=== PATIENT | male | born 1955 | race Caucasian/White ===

== ENCOUNTER → 2018-12-27 11:05 | Outpatient (CLI) | payer MEDICAID, SELFPAY ==
--- NOTE | 2018-12-27 11:08 | NM_ITS ---
CARDIOLITE SPECT MYOCARDIAL PERFUSION LEXISCAN, REST AND STRESS: History: Hypertension, hyperlipidemia, chronic tobacco use, family history, chest pain, shortness of breath, syncope and fatigue Procedure: Patient received a 0.4 mg of intravenous Lexiscan, resting heart rate was 57 bpm resting blood pressure 147/87, with scan maximum heart rate achieved was 92 bpm which is less than 85% of the maximum predicted heart rate and a blood pressure was 133/79. With Lexiscan patient complained of shortness of breath Electrocardiogram: Resting electrocardiogram showed sinus rhythm, with Lexiscan there is less than 1.[address] segment depression noted from the baseline EKG. The EKG portion of the Lexiscan Myoview is nondiagnostic. Cardiac stress and resting SPECT images: Cardiac stress and resting SPECT images were obtained using technetium 99 Myoview 32.4 mCi at stress and 10.1 mCi at rest. Gated SPECT further analysis of segmental wall motion and calculation of the ejection fraction also done. Cardiac stress and resting SPECT images show a fixed defect involving the posterobasal wall consistent with area of myocardial scarring, no reversible ischemia seen. Computer derived ejection fraction is 61% with mild posterobasal wall hypokinesis, right ventricle is normal size and contractility. Conclusion: 1. The EKG portion of the Lexiscan Myoview is nondiagnostic. 2. Scintigraphic evidence of myocardial scarring involving the posterobasal wall without significant josh-infarct ischemia, computer derived ejection fraction 61% segmental wall motion abnormality described above, right ventricle is normal size and contractility. 3. Abnormal Lexiscan Myoview study.
--- NOTE | 2018-12-27 11:08 | CA_ITS ---
PROCEDURE: 2-D M-mode and color Doppler study INDICATIONS FOR THE TEST: Chest pain X COPD Heart Murmur Tobacco SmokingX Palpitations Fatigue Syncope Edema HypertensionXDiabetes Mellitus Rheumatic Fever SOBXDOEXObesity HyperlipidemiaX Family History HD Additional History CAD PATIENT INFORMATION HEIGHT: 73 WEIGHT:234 GENDER: Male B/P:135/81 2-D/M-MODE INTERPRETATION: 2-D MEASUREMENTS OBSERVED VALUES IN CMS Right Ventricular Dimension (RVDd) 1.8 Interventricular Septum (Thickness)(IVsd) .8 Left Ventricular Internal Dimensions(LVIDd) 5.0 Left Ventricular Posterior Wall (Thickness)(LVPWd) 1.0 Aortic Root 4.0 Aortic Cusp Separation 2.1 Left Atrial Dimensions (LAD) 2.9 2D 1. Left atrium is mildly enlarged, left ventricle is normal size, mild concentric left ventricular hypertrophy, visually estimated ejection fraction 55% with no regional wall motion abnormality. 2. The right atrium and right ventricle are normal size and contractility. 3. The aortic valve is minimally thickened and fibrosed. 4. The mitral and tricuspid valve are grossly normal. 5. The pulmonic valve is poorly visualized. 6. No significant pericardial effusion noted. DOPPLER INTERROGATION: Doppler interrogation of the aortic, mitral and tricuspid valvular presence of mild mitral and tricuspid regurgitation, tricuspid regurgitation jet velocity is inadequate for calculation of the right ventricular systolic pressure, grade 1 diastolic dysfunction seen without tissue Doppler evidence of raised left atrial pressure. CONCLUSION: 1. Mildly enlarged left atrium, normal left ventricular size, mild concentric left ventricular hypertrophy, visually estimated ejection fraction 55% with no regional wall motion abnormality, grade 1 diastolic dysfunction seen without tissue Doppler evidence of raised left atrial pressure. 2. Mild mitral and tricuspid regurgitation . 3. No significant pericardial effusion noted.
--- NOTE | 2018-12-27 13:43 | HMH.ITSHM ---
Current Home Medications as stated by this patient Mehul Horne or congressional representative. []meloxicam lasix zantac gabapentin singulair flomax lipitor tricor carvedilol cozarr renexa asp symbicort ventolyn
== END ==
PROVIDERS: PCP Family Medicine; Visit Provider Internal Medicine
DX: I20.9 Angina pectoris, unspecified (principal); R06.00 Dyspnea, unspecified; I25.10 Atherosclerotic heart disease of native coronary artery without angina pectoris; E78.5 Hyperlipidemia, unspecified; I11.9 Hypertensive heart disease without heart failure; I67.1 Cerebral aneurysm, nonruptured; R60.0 Localized edema; F17.200 Nicotine dependence, unspecified, uncomplicated
CPT/HCPCS: 78452; 93017; 93306; A9502; J2785

== ENCOUNTER 2020-03-31 08:48 | Day surgery (SDC) | payer MEDICAID, SELFPAY ==
[2020-03-31 12:24] VITALS: BMI 30.3
[2020-03-31 12:44] VITALS: BP 143/77; RESP 16; TEMP 36.7; O2SAT 98
[2020-03-31 14:00] VITALS: BP 133/87; PULSE 57; RESP 20; O2SAT 95
--- NOTE | 2020-03-31 14:22 | HMH.LOOP ---
[facility] Loop Recorder Date: 03/31/20 Time: 13:15 Procedure Performed:: Implantation of loop recorder Indication:: Recurrent palpitations not documented on external monitoring Technique:: Patient was brought to the cardiac Claim Clinician. After informed consent obtained, 1% lidocaine with epinephrine was used to anesthetize the site along the left anterior aspect of the chest near the sternal border. Using the preformed scalpel, an incision was made and using the supplied preloaded apparatus, the loop recorder was placed subcutaneously without difficulty. Following the deployment of the loop recorder interrogation of the device was performed to ensure appropriate voltage was being detected (0.3 mV). Once this was verified, Steri-Strips were placed over the incision and the patient was prepped to discharge home. Patient tolerated the procedure well with minimal discomfort. Impression:: Successful loop recorder implantation Serial Number:: [id number] Plan:: Routine postop care
[2020-03-31 15:11] LABS: Coronavirus 19 IgG Antibody Negative (Negative); Coronavirus 19 IgM Antibody Negative (Negative)
== END 2020-03-31 14:38 | disposition home or self-care (01) ==
LOC: CATHLAB 08:49
PROVIDERS: PCP Family Medicine; Visit Provider Internal Medicine
DX: Z45.09 Encounter for adjustment and management of other cardiac device (principal); I47.1 Supraventricular tachycardia; I25.118 Atherosclerotic heart disease of native coronary artery with other forms of angina pectoris; I11.9 Hypertensive heart disease without heart failure; Z72.0 Tobacco use; E78.5 Hyperlipidemia, unspecified; Z79.899 Other long term (current) drug therapy
CPT/HCPCS: 33285; 86328

== ENCOUNTER → 2020-11-03 14:12 | Outpatient (CLI) | payer MEDICAID, SELFPAY ==
[2020-11-03 14:34] LABS: Basophils % 0.7 % (0.1-2.0); Eosinophils # 0.1 K/mm3 (0.0-0.4); Eosinophils % 2.3 % (0.1-12.0); Hematocrit 43.7 % (42.0-52.0); Hemoglobin 14.2 g/dL (14.1-18.0); Lymphocytes # 2.1 K/mm3 (0.7-4.5); Lymphocytes % 34.7 % (10-50); Mean Corpuscular HGB Conc 32.6 g/dL (31.8-35.4); Mean Platelet Volume 9.5 fl (7.4-10.4); Monocytes # 0.4 K/mm3 (0.1-1.0); Monocytes % 6.5 % (1.7-9.3); Neutrophils # 3.4 K/mm3 (1.8-7.8); Neutrophils % 55.8 % (37.0-80.0); Platelet Count 199 K/mm3 (142-424); Red Blood Count 4.59 M/mm3 (4.60-6.20); Red Cell Distribution Width 13.1 % (11.5-17.5); White Blood Count 6.2 K/mm3 (4.8-10.8)
[2020-11-03 14:59] LABS: Troponin I < 0.01 ng/ml (0.00-0.034)
[2020-11-03 15:11] LABS: Alanine Aminotransferase 38 U/L (12-78); Albumin Level 4.5 g/dl (3.5-5.0); Alkaline Phosphatase 51 U/L (38-126); Anion Gap 11.1 mEq/L (5-15); Aspartate Amino Transferase 48 U/L (17-59); Bilirubin,Indirect 0.5 mg/dL (0.0-0.9); Bilirubin,Total 0.5 mg/dl (0.2-1.3); Bilirubin,Unconjugated 0.5 mg/dL (0.0-1.1); Blood Urea Nitrogen 25 mg/dl (9-20); Calcium 10.3 mg/dl (8.4-10.2); Carbon Dioxide 27 mmol/L (22.0-30.0); Chloride 109 mmol/L (98-107); Estimated Glomerular Filt Rate 51 ml/min (>60); GFR (African American) 62 ML/MIN (>60); Glucose 112 mg/dl (74-100); Potassium 4.1 mmoL/L (3.5-5.1); Sodium 143 mmol/L (136-145); Total Protein,Serum 7.3 g/dl (6.3-8.2)
[2020-11-03 15:42] LABS: Thyroid Stimulating Hormone 1.21 uIU/mL (0.465-4.68)
[2020-11-03 16:47] LABS: Free T4 (Free Thyroxine) 1.12 ng/dl (0.78-2.19)
== END ==
PROVIDERS: Visit Provider Nurse Practitioner Family
DX: R06.00 Dyspnea, unspecified (principal); E11.9 Type 2 diabetes mellitus without complications; I11.9 Hypertensive heart disease without heart failure; I20.9 Angina pectoris, unspecified; Q24.5 Malformation of coronary vessels; R00.1 Bradycardia, unspecified; F17.200 Nicotine dependence, unspecified, uncomplicated
CPT/HCPCS: 36415; 80048; 80076; 84439; 84443; 84484; 85025

== ENCOUNTER → 2020-11-23 07:18 | Outpatient (CLI) | payer MEDICAID, SELFPAY ==
--- NOTE | 2020-11-23 | CA_ITS ---
APPROVED REPORT Exam: Pharmacologic Technologist: Madeleine Fitzgerald, Ht: 6 ft 1 in Wt: 228 lbs BSA: 2.27 m2 HR: 48 bpm BP: 134/82 mmHg Rhythm: MARKED SINUS BRADYCARDIA Indications: Chest pain, Shortness of Breath Medical History Medical History: HTN, Hyperlipidemia Medications: Furosemide (LASIX),,,,, Gabapentin,,,,, Sotalol,,,,, Losartan,,,,, Atorvastatin,,,,, TAMSULOSIN,,,,, Albuterol,,,,, Montelukast,,,,, MeLOXICAM,,,,, CloPIdogrel,,,,, FeNOfibrate,,,,, Venlafaxine,,,,, Cardiac Risk Factors: HTN, Hyperlipidemia, FHX of CAD, Smoking Stress Test Details Test: LEXISCAN HR Resting HR: 46 bpm Max Heart Rate (APMHR): 157.225235 bpm Max HR Achieved: 74 bpm Target HR (85% APMHR): 133.814505 bpm % of APMHR: 47.13 Recovery HR: 63 bpm BP Resting BP: 134.0/82.0 mmHg Max BP: 134.0/82.0 mmHg Recovery BP: 112.0/74.0 mmHg ECG Resting ECG: MARKED SINUS BRADYCARDIA Clinical Exercise duration: 04:00 min Highest Stage Achieved: Stress ECG Conclusion DURING INFUSION PATIENT HAD SOA,MALAISE. NO CHEST PAIN. NO ARRHYTHMIAS/ECTOPY. ANTERIOR T WAVE INVERSION. NON-DIAGNOSTIC LEXISCAN STRESS. MYOVIEW IMAGES REPORTED SEPARATELY. Electronically signed by : Jcarlos Cabral, 11/26/2020 08:35:08
--- NOTE | 2020-11-23 07:18 | NM_ITS ---
APPROVED REPORT Exam: Nuclear Stress Test Indication: Chest pain, SOB, Palpitations, HTN, High cholesterol, Tobacco use, Family history Patient Location: Outpatient Stress Tech: Madeleinemarivel Fitzgerald HI Tech:Tamarachantal Mejía, ARRT, RT (R)(N) Ht: 6 ft 1 in Wt: 225 lbs HR: 48 bpm BP: 134/82 mmHg BSA: 2.26 m2 BMI: 29.6 History: Chest pain, SOB, Palpitations, HTN, High cholesterol, Tobacco use, Family history Procedure: Patient received a 0.4 mg of intravenous Lexiscan, resting heart rate 48 bpm, resting blood pressure 134/82 mmHg, with Lexiscan maximum heart rate achived was 70 bpm which is % of the maximum predicted heart rate and blood pressure was 107/69 mmHg. With Lexiscan, patient denied any complaint of chest pain. Cardiac Stress and Resting SPECT Images: Cardiac Stress and Resting SPECT images were obtained using technetium 99m Myoview 30.7 mCi stress and 9.82 mCi at rest. Ejection Fraction normal at 58%. No wall motion abnormality. No reversible or fixed defects. Conclusion: Normal Electronically signed by : Hermes Musa MD 11/24/2020 14:51:47
--- NOTE | 2020-11-23 09:04 | HMH.ITSHM ---
Current Home Medications as stated by this patient Mehul Page or registration representative. []VENLAFAXINE TIOTROPIUM TAMSULOSIN SOTALOL RIVAROXABAN NITRO MONTELUKAST MELOXICAM LOSARTAN GABAPENTIN FUROSEMIDE FENOFIBRATE CLOPIDOGREL ATORVASTATIN ALBUTEROL
== END ==
PROVIDERS: PCP Family Medicine; Visit Provider Nurse Practitioner Family
DX: R06.00 Dyspnea, unspecified (principal); I20.9 Angina pectoris, unspecified; I11.9 Hypertensive heart disease without heart failure; I48.91 Unspecified atrial fibrillation; I67.1 Cerebral aneurysm, nonruptured; Q24.5 Malformation of coronary vessels; R60.0 Localized edema; E78.5 Hyperlipidemia, unspecified; F17.200 Nicotine dependence, unspecified, uncomplicated
CPT/HCPCS: 78452; 93017; 93306; A9502; J2785

== ENCOUNTER 2023-12-05 10:41 | Outpatient (CLI) | payer MEDICARE, MEDICAID, SELFPAY ==
--- NOTE | 2023-12-05 | CA_ITS ---
APPROVED REPORT EXAM: Comprehensive 2D, Doppler, and color-flow Echocardiogram Patient Support Tech: TRE Artis, RVS Ht: 6 ft 1 in Wt: 229lbs BSA: 2.28 BP: 104/64 mmHg Indications: PRE-OP CANCER BIOPSY/TREATMENT, COPD, Smoker, AAA, SSS, Coronary myocardial bridge, SOA, Atypical CP 2D Dimensions Left Atrium 2.82 cm M: 3.0 - 4.0 LA Volume 53.70 mL LA Volume Index 23.55 mL/m2 (M/F) 16-34 M-Mode Dimensions RVDd 2.96 cm (0.9-2.6) LA Diam 3.40 cm (1.9-4.0) LVDd 5.16 cm (3.5-5.7) LVDs 3.18 cm (3.5-5.7) IVSd 1.06 cm (0.6-1.1) PWd 0.87 cm (0.6-1.1) EF (Teich) 71.00% EPSs 0.46 cm FS 40.70% EDV (Teich) 138.90 mL TAPSE 2.20 (<1.7) ESV (Teich) 40.30 mL LV Diastology E Decel Time 263 (160-240 msec) E/A Ratio 0.8 MED A' 8.60 cm/s LAT A' 10.20 cm/s Aortic Valve OJSE Index 1.36 cm2/m2 AoV Peak Bao. 124.0 (50-130 cm/s) AO Peak GR. 6.20 mmHg AO Mean GR. 3.10 (<5 mmHg) AO VTI 28.0 (18-25 cm) JOSE (VTI) 3.18 (2.5-4.5 cm2) Mitral Valve MV E Max Bao. 72.0 (40-130 cm/s) MV A Velocity 89.0 (40-130 cm/s) E/A Ratio 0.81 MV PHT 77.0 ms Pulmonary Valve PV Peak Velocity 71.0 (50-150 cm/s) Tricuspid Valve TR P. Velocity 260.00 cm/s RAP Estimate 10.00 mmHg RVSP 37.00 mmHg Left Ventricle The left ventricle is normal size. The left ventricular systolic function is normal. The left ventricular ejection fraction is within the normal range. There is increased LV wall thickness. There is normal LV segmental wall motion. Transmitral Doppler flow pattern suggests impaired LV relaxation. LVEF is 55%. Right Ventricle The right ventricle is normal size. The right ventricular systolic function is normal. There is increased RV wall thickness. Atria The left atrium size is normal. The right atrium size is normal. There is no Doppler evidence of interatrial shunt. Aortic Valve The aortic valve is mildly thickened. There is no aortic valvular stenosis. No aortic regurgitation is present. Mitral Valve The mitral valve is normal in structure. No evidence of mitral valve stenosis. Trace mitral valve regurgitation noted. Tricuspid Valve The tricuspid valve leaflets are thin and pliable. Trace tricuspid regurgitation. RVSP is 20-25 mmHg. Pulmonic Valve The pulmonary valve is normal in structure. Trace pulmonic regurgitation. Great Vessels The aortic root is normal in size. The ascending aorta is not well visualized. IVC is normal in size and collapses >50% with inspiration. Pericardium There is no pericardial effusion. Other Information Study Quality: Technically Difficult Conclusion Technically difficult study due to poor accoustic windows. Normal biventricular systolic function. No significant valvular stenosis or regurgitation. Electronically signed by : Tonia Casarez MD 12/09/2023 17:25:03
== END 2023-12-05 23:59 ==
LOC: RT 10:42
PROVIDERS: PCP Family Medicine; Visit Provider Internal Medicine
DX: Z01.810 Encounter for preprocedural cardiovascular examination (principal)
CPT/HCPCS: 93306